=== PATIENT | male | born 1995 | race Caucasian/White ===

== ENCOUNTER 2018-10-29 21:27 | Emergency (ER) | payer BC, OTHER ==
[~2018-10-29] VITALS: Ht 180.3 cm; Wt 102.1 kg
--- OUTSIDE RECORDS SUMMARY | 2018-10-29 21:35 | XMS REPORT ---
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 Phone Graeme Cuenca CP Unavailable Allergies, Adverse Reactions, Alerts Substance Reaction Event Type Augmentin Info Not Available Drug Allergy Problems Problem Type Condition Code Onset Dates Condition Status Problem Syncope R55 Active Problem Lightheaded R42 Active Problem Chest pain R07.9 Active Assessment Lightheaded R42 Active Assessment Chest pain R07.9 Active Assessment Syncope R55 Active Medications Medication Code System Code Instructions Start Date End Date Status Dosage Eulalia-D 12 Hour NDC 0 prn not defined Procedures Procedure Coding System Code Date Office Consultation Level 3 CPT-4 62707 January 13, 2016 ELECTROCARDIOGRAM, COMPLETE CPT-4 43984 January 13, 2016 Vital Signs Date/Time: January 13, 2016 BMI 24.96 Index Weight 179 lbs Height 5 ft 11 in in Cardiac Monitoring Heart Rate 68 /min Oximetry 98 % Blood Pressure Diastolic 70 mm Hg Blood Pressure Systolic 120 mm Hg Results No Known Results Summary Purpose [employer] Submission
--- OUTSIDE RECORDS SUMMARY | 2018-10-29 21:35 | XMS REPORT ---
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
[2018-10-29] MEDS ORDERED: fentaNYL INJECTION 100 MCG/2 ML AMP IVP ONE ×2 (21:45→22:30)
[2018-10-29] MEDS ORDERED: METH10TA3 PO (21:55)
[2018-10-29] MEDS ORDERED: ETOMIDATE IV SOLN 20 MG/10 ML VIAL IV ONE (22:30)
[2018-10-29] MEDS ORDERED: ONDANSETRON 4 MG/2 ML (SDV) Z0FRAN ONE (22:47)
[2018-10-29] MEDS ORDERED: NS IV 1000 ML 1,000 ML ONE (22:50)
[2018-10-29] MEDS ORDERED: NS IV 500 ML 500 ML IV ONE (23:23)
--- NOTE | 2018-10-29 23:37 | ED Upper Extremity ---
General Chief Complaint: Upper Extremity Stated Complaint: PLAYING FOOTBALL AND HURT SHOULDER Nursing Triage Note: left shoulder/upper arm pain. Nursing Sepsis Screen: No Definite Risk Source: patient Exam Limitations: no limitations History of Present Illness Date Seen by Provider: Oct 29, 2018 Time Seen by Provider: 21:36 Initial Comments This 23-year-old young man presents to the emergency room by private vehicle in distress because of a left shoulder injury. He was playing football and grabbed hold of another player who pulled away from him. He felt a popping in his shoulder. He presumed this to be a dislocation. He had another individual pull on his arm to try to put it back in place. This seemed to be successful. He returned home and was getting cleaned up when he raised his hand up over his head. He felt a sudden pop and pain. He then presented to the emergency room. He is standing in a bent posture with his left arm dangling loose. He has no prior history of shoulder dislocation. There was no blunt trauma directly to the shoulder. Onset: just prior to arrival Allergies and Home Medications Allergies Coded Allergies: amoxicillin (Verified Allergy, Unknown, 10/29/18) clavulanic acid (Verified Allergy, Unknown, 10/29/18) Uncoded Allergies: Wasps (Allergy, Unknown, 10/29/18) Patient Home Medication List Home Medication List Reviewed: Yes Review of Systems Constitutional: no symptoms reported EENTM: no symptoms reported Respiratory: no symptoms reported Cardiovascular: no symptoms reported Gastrointestinal: no symptoms reported Genitourinary: no symptoms reported Musculoskeletal: see HPI Skin: no symptoms reported Psychiatric/Neurological: No Symptoms Reported Past Tfwvugf-Fwghbj-Yyozuk Hx Past Med/Social Hx: Reviewed Nursing Past Med/Soc Hx Patient Social History Alcohol Use: Occasionally Uses Recreational Drug Use: No Smoking Status: Never a Smoker 2nd Hand Smoke Exposure: No Recent Foreign Travel: No Contact w/Someone Who Travel: No Recent Infectious Disease Expo: No Recent Hopitalizations: No Immunizations Up To Date Tetanus Booster (TDap): Unknown Seasonal Allergies Seasonal Allergies: No Past Medical History Surgeries: Yes Tonsillectomy Respiratory: No Cardiac: No Neurological: No Genitourinary: No Gastrointestinal: No Musculoskeletal: No Endocrine: No HEENT: No Cancer: No Psychosocial: Yes ADD/ADHD, Anxiety Integumentary: No Blood Disorders: No Physical Exam Vital Signs Vital Signs - First Documented 10/29/18 21:34 Temp 98.5 Pulse 109 Resp 22 B/P (MAP) 138/90 (106) Pulse Ox 97 O2 Delivery Room Air Capillary Refill : Less Than 3 Seconds Height, Weight, BMI Height: 5'11.00" Weight: 225lbs. oz. 102.171205if; BMI Method:Stated General Appearance: WD/WN, moderate distress HEENT: PERRL/EOMI, normal ENT inspection, pharynx normal Neck: normal inspection Cardiovascular: regular rate, rhythm, no edema, no murmur Respiratory: lungs clear, normal breath sounds, no respiratory distress, no accessory muscle use Gastrointestinal: non tender, soft Back: normal inspection Shoulder: asymmetry, bone tenderness, deformity, limited ROM, pain Elbow/Forearm: normal inspection, non-tender, no evidence of injury, normal ROM Wrist: Yes normal inspection, Yes non-tender, Yes no evidence of injury, Yes normal ROM Hand: normal inspection, non-tender, no evidence of injury, normal ROM Neurologic/Tendon: normal sensation, normal motor functions, no evidence tendon injury 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 Patient was pretreated with fentanyl 100 g. Sedation was provided with etomidate 20 mg IV. Shoulder was reduced using the Legg maneuver. A shoulder immobilizer sling was applied. Patient recovered well. Progress/Results/Core Measures Results/Orders My Orders Orders - HERMINIA KRUGER MD Fentanyl Injection (Sublimaze Injection (10/29/18 21:45) Saline Lock/Iv-Start (10/29/18 21:42) Shoulder, Left, 3 Views (10/29/18 21:42) Fentanyl Injection (Sublimaze Injection (10/29/18 22:30) Etomidate Injection (Amidate Injection) (10/29/18 22:30) Ondansetron Injection (Zofran Injectio (10/29/18 22:47) Ns Iv 1000 Ml (Sodium Chloride 0.9%) (10/29/18 22:50) Shoulder, Left, 1 View (10/29/18 23:05) Saline Lock/Iv-Start (10/29/18 23:23) Ns Iv 500 Ml (Sodium Chloride 0.9%) (10/29/18 23:23) Medications Given in ED Current Medications Medications Dose Ordered Sig/Michael Route Start Time Stop Time Status Last Admin Dose Admin Etomidate 20 mg ONCE ONCE IV 10/29/18 22:30 10/29/18 22:31 DC 10/29/18 22:45 20 MG Fentanyl Citrate 100 mcg ONCE ONCE IVP 10/29/18 21:45 10/29/18 21:46 DC 10/29/18 21:48 100 MCG Fentanyl Citrate 100 mcg ONCE ONCE IVP 10/29/18 22:30 10/29/18 22:31 DC 10/29/18 22:45 100 MCG Ondansetron HCl 4 mg STK-MED ONCE .ROUTE 10/29/18 22:47 10/29/18 22:48 DC 10/29/18 22:48 8 MG Sodium Chloride 500 ml @ 0 mls/hr Q0M ONCE IV 10/29/18 23:23 10/29/18 23:24 DC 10/29/18 23:25 0 MLS/HR Sodium Chloride 1,000 ml @ ud STK-MED ONCE .ROUTE 10/29/18 22:50 10/29/18 22:52 DC 10/29/18 22:52 50 MLS/HR Vital Signs/I&O 10/29/18 10/29/18 10/29/18 10/29/18 21:34 22:35 22:35 22:50 Temp 98.5 Pulse 109 92 86 Resp 22 12 16 B/P (MAP) 138/90 (106) 107/50 90/55 Pulse Ox 97 97 97 O2 Delivery Room Air Nasal Cannula Nasal Cannula Nasal Cannula O2 Flow Rate 2.00 2.00 2.00 2.00 10/29/18 10/29/18 10/29/18 23:00 23:15 23:46 Temp 98.3 Pulse 80 74 77 Resp 17 14 14 B/P (MAP) 106/57 102/64 102/95 (97) Pulse Ox 97 96 95 O2 Delivery Nasal Cannula Nasal Cannula Room Air O2 Flow Rate 2.00 2.00 3/27/19 00:00 Intake Total 1500 ml Balance 1500 ml Blood Pressure Mean: 106 Progress Progress Note : Progress Note Pain was treated with fentanyl 100 g IV. X-ray was obtained which demonstrated shoulder dislocation. After informed consent, reduction was performed under sedation with etomidate and fentanyl. Postreduction x-ray showed the shoulder in good anatomical position. Patient was placed in a sling with immobilizer strap after successful reduction. Patient's blood pressure was marginal after sedation and 1500 mL of normal saline was administered. Patient recovered well and ambulated out of the ER in improved condition. Diagnostic Imaging Diagonstic Imaging: Xray Plain Films/CT/US/NM/MRI: other (left shoulder) Comments 3 view x-ray of the left shoulder viewed by me. Report not yet available. There appears to be an anterior shoulder dislocation. No fracture evident. Diagonstic Imaging: Xray Plain Films/CT/US/NM/MRI: other (left shoulder postreduction) Comments Left shoulder x-ray viewed by me. Report not yet available. This is a single view x-ray for postreduction evaluation. The shoulder appears to be now in good anatomical position. No fractures are observed. Departure Impression Primary Impression: Anterior shoulder dislocation Qualified Codes: S43.015A - Anterior dislocation of left humerus, initial encounter Disposition: 01 HOME, SELF-CARE Condition: Improved Departure-Patient Inst. Decision time for Depature: 23:35 Referrals: PIOTR VAZ MD Patient Instructions: Shoulder Dislocation Add. Discharge Instructions: Keep your arm in the sling is much as possible. If the sling must be removed, do not raise your arm away from the body or up toward your head as this may cause a repeat dislocation. You may take ibuprofen up to 600 mg every 6 hours as needed for pain. You may also take Tylenol (acetaminophen) up to 1000 mg every 6 hours as needed. Icing in 20 minute intervals may help with pain and swelling as well. Follow-up with Dr. Vaz or the orthopedic surgeon of your choice as soon as possible. Please call tomorrow for an appointment time. Return to care if you have any worsening of symptoms or repeat dislocation. All discharge instructions reviewed with patient and/or family. Voiced understanding. Work/School Note: Work Release Form Date Seen in the Emergency Department: Oct 29, 2018 Return to Work: Oct 30, 2018 Other Restrictions Listed Below: No use of left arm until cleared by a doctor Copy Copies To 1: PIOTR VAZ MD, JOSHUA T MD Oct 29, 2018 23:37
[2018-10-29 23:46] VITALS: BP 102/95
--- NOTE | 2018-10-30 07:06 | Diagnostic Imaging Report ---
PATIENT HISTORY: Left shoulder injury. TECHNIQUE: 3 views of the left shoulder COMPARISON: None FINDINGS: There is an anterior dislocation of the left glenohumeral joint. No acute fracture is seen. Alignment otherwise appears normal. IMPRESSION: Anterior dislocation of the left glenohumeral joint. Dictated by: Dictated on workstation # [id number]
--- NOTE | 2018-10-30 07:08 | Diagnostic Imaging Report ---
PATIENT HISTORY: Post reduction of the left shoulder. TECHNIQUE: Frontal view of the left shoulder COMPARISON: Radiographs from the same day FINDINGS: Glenohumeral alignment appears improved on this single view. There may be a small Hill-Sachs deformity. The acromioclavicular alignment is normal. No displaced fractures are seen. IMPRESSION: Glenohumeral alignment appears improved on this single view. There may be a small Hill-Sachs deformity. Dictated by: Dictated on workstation # [id number]
== END 2018-10-29 23:48 | disposition home or self-care (01) ==
LOC: ER 21:31
DX: S43.015A Anterior dislocation of left humerus, initial encounter (principal); F41.9 Anxiety disorder, unspecified; F90.9 Attention-deficit hyperactivity disorder, unspecified type; Z88.1 Allergy status to other antibiotic agents; Z91.030 Bee allergy status; Z90.89 Acquired absence of other organs; W51.XXXA Accidental striking against or bumped into by another person, initial encounter; Y93.61 Activity, american tackle football
CPT/HCPCS: 73020; 73030; 93041; 96361; 96374; 96375; 96376